=== PATIENT | male | born 1970 | race Caucasian/White ===

== ENCOUNTER 2022-06-28 05:06 | Emergency (ER) | payer SELFPAY ==
[2022-06-28 05:08] VITALS: BP 153/96; PULSE 62; RESP 16; TEMP 36.6; O2SAT 97; BMI 29.5
--- NOTE | 2022-06-28 05:18 | CT_ITS ---
PROCEDURE INFORMATION: Exam: CT Abdomen And Pelvis Without Contrast Exam date and time: 06/28/2022 5:26 AM Age: 52 years old Clinical indication: Abdominal pain; Flank; Right; Additional info: RT flank pain TECHNIQUE: Imaging protocol: Computed tomography of the abdomen and pelvis without contrast. Radiation optimization: All CT scans at this facility use at least one of these dose optimization techniques: automated exposure control; mA and/or kV adjustment per patient size (includes targeted exams where dose is matched to clinical indication); or iterative reconstruction. REPORTING DATA: Count of CT and Cardiac NM exams in prior 12 months: This patient has received 0 known CTs and 0 known cardiac nuclear medicine studies in the 12 months prior to the current study. COMPARISON: [facility] CTA-CHEST 11/08/2015 9:39 PM FINDINGS: Liver: Normal. No mass. Gallbladder and bile ducts: Normal. No calcified stones. No ductal dilation. Pancreas: Normal. No ductal dilation. Spleen: Normal. No splenomegaly. Adrenal glands: Normal. No mass. Kidneys and ureters: No hydronephrosis, hydroureter, nephrolithiasis, or urolithiasis is present. Stomach and bowel: Moderate retained stool throughout the colon. Appendix: No evidence of appendicitis. Intraperitoneal space: Unremarkable. No free air. No significant fluid collection. Vasculature: Unremarkable. No abdominal aortic aneurysm. Lymph nodes: Unremarkable. No enlarged lymph nodes. Urinary bladder: Unremarkable as visualized. Reproductive: Unremarkable as visualized. Bones/joints: Unremarkable. No acute fracture. Soft tissues: Unremarkable. IMPRESSION: No evidence of renal stone or obstruction. Moderate retained stool throughout.
[2022-06-28 05:21] LABS: Microscopic, Urine URINE MICROSCOPIC (MICROSCOPIC)
[2022-06-28 05:22] LABS: Appearance,Urine CLEAR (Clear); Bilirubin,Urine Negative (Negative); Blood, Urine TRACE-L (Negative); Color,Urine YELLOW (Yellow); Glucose,Urine (UA) Negative (Negative); Ketones,Urine Negative (Negative); Leukocyte Esterase,Urine Negative (Negative); Nitrate,Urine Negative (Negative); PH,Urine 6.5 (5.0-8.5); Protein,Urine Negative (Negative); Specific Gravity, Urine 1.015 (1.005-1.030); Urobilinogen,Urine 0.2 EU/dl (0.2)
[2022-06-28 05:30] LABS: Basophils # 0.1 K/mm3 (0-0.2); Basophils % 0.5 % (0.1-2.0); Eosinophils # 0.4 K/mm3 (0.0-0.4); Eosinophils % 3.3 % (0.1-12.0); Hematocrit 43.6 % (42.0-52.0); Hemoglobin 14.5 g/dL (14.1-18.0); Lymphocytes # 3.1 K/mm3 (0.7-4.5); Lymphocytes % 27.3 % (10-50); Mean Corpuscular HGB Conc 33.1 g/dL (31.8-35.4); Mean Corpuscular Hemoglobin 29.7 pg (27.0-31.2); Mean Corpuscular Volume 89.6 fl (80-94); Mean Platelet Volume 7.8 fl (7.4-10.4); Monocytes # 0.6 K/mm3 (0.1-1.0); Monocytes % 4.9 % (1.7-9.3); Neutrophils # 7.3 K/mm3 (1.8-7.8); Platelet Count 304 K/mm3 (142-424); Red Blood Count 4.87 M/mm3 (4.60-6.20); Red Cell Distribution Width 14.3 % (11.5-17.5); White Blood Count 11.4 K/mm3 (4.8-10.8)
[2022-06-28 05:34] LABS: Amorphous Sediment,Urine 1+ /lpf; Bacteria,Urine Trace /lpf; RBC,Urine Occasional #/hpf (0-3); Squamous Epithelial Cell,Urine Occasional #/hpf (0-5)
[2022-06-28 05:45] LABS: Chloride 100 mmol/L (98-107); Potassium 4.4 mmoL/L (3.5-5.1); Sodium 138 mmol/L (136-145)
[2022-06-28 05:48] LABS: Alanine Aminotransferase 23 U/L (12-78); Albumin/Globulin Ratio 1.6 (1.1-1.8); Alkaline Phosphatase 99 U/L (38-126); Anion Gap 16.4 mEq/L (5-15); Aspartate Amino Transferase 24 U/L (17-59); Bilirubin,Total 0.3 mg/dl (0.2-1.3); Blood Urea Nitrogen 26 mg/dl (9-20); Carbon Dioxide 26 mmol/L (22.0-30.0); Creatinine Clearance Estimated 135 mL/min (50-200); Estimated Glomerular Filt Rate 101 ml/min (>60); GFR (African American) 122 ML/MIN (>60); Globulin 2.5 g/dL (1.3-3.2); Total Protein,Serum 6.5 g/dl (6.3-8.2)
[2022-06-28 05:49] LABS: Glucose 114 mg/dl (74-100)
--- NOTE | 2022-06-28 06:16 | [facility].EDGENADL ---
Discharge Plan Disposition Patient Disposition: Home, Self-Care Condition: Good Chief Complaint: Back Pain/Injury Referrals Follow up/Referrals: Dannie Quinones MD [Primary Care Provider] - See instructions Clinical Impressions Clinical Impression: Constipation, unspecified Instructions Patient Instructions: DI for Low Back Pain Discharge ED Provider: Jovanny Miguel General Adult HPI General Chief complaint: Back Pain/Injury Stated complaint: Lower right back pain with nausea Time Seen by Provider: 06/28/22 05:56 Mode of Arrival: Ambulatory Source of Information: Patient Limitations: No Limitations Description of Symptoms (Recalled from ER Triage Doc. by RN): pt c/o lower back pain radiating to lower abd pain x 3 days History of Present Illness HPI narrative: 52yo M presents to the ER secondary to lower abdominal pain that radiates around his right side to his back. Present for 3 days. Worse at night when he is trying to sleep. No fever. Reports mild nausea without vomiting, again worse at night. Denies previous abdominal surgery. Reports possibly passing 1 kidney stone and states this feels very different. No dysuria or urinary frequency Related Data Allergies Allergy/AdvReac Type Severity Reaction Status Date / Time Penicillins [PENICILLINS] Allergy Mild Verified 06/28/22 05:32 [facility] Disclaimer: The information contained in this section may have been updated after the patient was seen, as this information can be updated by other users. Social History Smoking Status: Current every day smoker alcohol intake: never current occupational status: previously employed Travel in the last 8 weeks: None ROS Obtained: Yes Systems reviewed as appropriate & no additional complaints except as documented Physical Exam General General appearance: alert and in no apparent distress Head Head exam: atraumatic Eye Eye exam: Absent scleral icterus or jaundice Neck Neck exam: Present trachea midline Chest Chest inspection: Present symmetric chest wall rise Respiratory Respiratory exam: Absent respiratory distress Cardiovascular Cardiovascular exam: Present regular rate and normal rhythm Abdominal Exam Abdominal exam: Present soft; Absent distention Neurological Exam Neurological exam: Present alert, oriented X3 and CN II-XII intact Skin Skin exam: Present warm and dry Medical Decision Making Medical Records Medical records reviewed: Yes I reviewed the patient's medical records. Bukc Inquiry Pt receiving controlled substance: No Vital Signs: 06/28/22 05:08 Temperature 97.8 F Temperature Source Oral Pulse Rate [Right] 62 Respiratory Rate 16 Blood Pressure [Right Arm] 153/96 H Blood Pressure Mean [Right Arm] 115 02 Sat by Pulse Oximetry 97 Lab Data Lab results reviewed: Yes I reviewed the patient's lab results. Lab Results 06/28/22 05:12: Urine Color Yellow, Urine Appearance Clear, Urine pH 6.5, Ur Specific [place] 1.015, Urine Protein Negative, Urine Glucose (UA) Negative, Urine Ketones Negative, Urine Blood Trace-l, Urine Nitrate Negative, Urine Bilirubin Negative, Urine Urobilinogen 0.2, Ur Leukocyte Esterase Negative, Urine RBC Occasional, Urine WBC None, Ur Squamous Epith Cells Occasional, Amorphous Sediment 1+, Urine Bacteria Trace 06/28/22 05:20: WBC 11.4 H, RBC 4.87, Hgb 14.5, Hct 43.6, MCV 89.6, MCH 29.7, MCHC 33.1, RDW 14.3, Plt Count 304, MPV 7.8, Neut % (Auto) 64.0, Lymph % (Auto) 27.3, [place] % (Auto) 4.9, Eos % (Auto) 3.3, Baso % (Auto) 0.5, Neut # (Auto) 7.3, Lymph # (Auto) 3.1, [place] # (Auto) 0.6, Eos # (Auto) 0.4, Baso # (Auto) 0.1 06/28/22 05:20: Sodium 138, Potassium 4.4, Chloride 100, Carbon Dioxide 26, Anion Gap 16.4 H, BUN 26 H, Creatinine 0.80, Estimated Creat Clear 135, Estimated GFR 101, Est GFR ( Amer) 122, Glucose 114 H, Calcium 9.0, Total Bilirubin 0.3, AST 24, ALT 23, Alkaline Phosphatase 99, Total Protein 6.5,
[2022-06-28 06:25] VITALS: BP 147/75; PULSE 60; RESP 16; TEMP 36.6; O2SAT 97
== END 2022-06-28 06:26 | disposition home or self-care (01) ==
PROVIDERS: Emergency Provider Family Medicine; PCP Family Medicine
DX: K59.00 Constipation, unspecified (principal); M54.50 Low back pain, unspecified; F17.200 Nicotine dependence, unspecified, uncomplicated
CPT/HCPCS: 74176; 80053; 81001; 85025; 96374; 96375; 99284; 99285; J2405